=== PATIENT | female | born 1980 | race Caucasian/White ===

== ENCOUNTER 2018-11-23 23:51 | Emergency (ER) | payer MEDICAID ==
[~2018-11-23] VITALS: Ht 152.4 cm; Wt 78.9 kg
[2018-11-24] VITALS: Ht 152.4 cm; Wt 78.9 kg
[2018-11-24 01:51] VITALS: BP 128/79
== END 2018-11-24 01:51 | disposition home or self-care (01) ==
LOC: ED 23:51
DX: J98.01 Acute bronchospasm (principal)
CPT/HCPCS: J7512; J7613; J7644